=== PATIENT | male | born 1990 | race Caucasian/White ===

== ENCOUNTER 2021-11-10 15:24 | Emergency (ER) | payer MEDICAID, OTHER ==
[~2021-11-10] VITALS: Ht 182.9 cm; Wt 93.0 kg
[2021-11-10 16:02] VITALS: BP 139/85
[2021-11-10] MEDS ORDERED: ACET-3385 PO (16:34)
== END 2021-11-10 16:39 | disposition home or self-care (01) ==
LOC: EMS 15:26
DX: M76.61 Achilles tendinitis, right leg (principal)
CPT/HCPCS: 99282; Z7502

== ENCOUNTER 2022-01-24 14:37 | Emergency (ER) | payer MEDICAID ==
[~2022-01-24] VITALS: Ht 170.2 cm; Wt 100.0 kg
[~2022-01-24 14:37] MED LIST: ACET-3385 PO
[2022-01-24] MEDS ORDERED: ACET-784 PO (14:47)
[2022-01-24 15:31] VITALS: BP 120/82
[2022-01-24 17:47] LABS: COVID AG,FIA SOURCE NASAL SWAB
== END 2022-01-24 18:33 ==
LOC: EMS 14:55
DX: F41.8 Other specified anxiety disorders (principal); Z20.822 Contact with and (suspected) exposure to COVID-19
CPT/HCPCS: 99285; Z7502

== ENCOUNTER 2022-09-20 11:45 | Emergency (ER) | payer MEDICAID ==
[~2022-09-20] VITALS: Ht 185.4 cm; Wt 97.7 kg
[2022-09-20 11:47] VITALS: TEMP 98
[2022-09-20] MEDS ORDERED: AMOX1TAB16 PO (11:49)
[2022-09-20 12:51] LABS: BASOPHILS % (AUTO) 0.4 % (0.0-2.0); EOSINOPHILS % (AUTO) 3.1 % (1.0-6.0); HEMATOCRIT 44.3 % (41-53); HEMOGLOBIN 15.4 g/dL (13.5-17.5); LYMPHOCYTES # (AUTO) 1.4 K/uL (1.0-4.8); LYMPHOCYTES % (AUTO) 25.7 % (22.0-44.0); MEAN CORPUSCULAR HEMOGLOBIN 30.5 pg (26.0-34.0); MEAN CORPUSCULAR HGB CONC 34.7 G/dL (31.0-37.0); MEAN CORPUSCULAR VOLUME 88 fL (80-100); MONOCYTES # (AUTO) 0.4 K/uL (0.1-1.0); MONOCYTES % (AUTO) 7.3 % (2.0-9.0); NEUTROPHILS # (AUTO) 3.5 K/uL (1.8-7.7); NEUTROPHILS % (AUTO) 63.5 % (40.0-70.0); PLATELET COUNT (AUTO) 274 K/uL (150-450); RED BLOOD CELL COUNT(AUTO) 5.04 MIL/uL (4.50-5.90); RED CELL DISTRIBUTION WIDTH 13.4 % (11.5-14.5)
[2022-09-20 13:00] LABS: ANION GAP 8 mmol/L (8-16); CALCIUM, TOTAL 8.8 mg/dL (8.8-10.5); CARBON DIOXIDE 30 mmol/L (22-29); CHLORIDE 101 mmol/L (98-107); CREATININE 0.76 mg/dL (0.60-1.30); GLOMERULAR FILTR. RATE CALC > 60 mL/min (>60); GLUCOSE,RANDOM 94 mg/dL (70-110); POTASSIUM 4.5 mmol/L (3.5-5.1); SODIUM SERUM 139 mmol/L (136-145)
[2022-09-20 13:05] LABS: ALANINE AMINOTRANSFERASE 66 U/L (12-78); ALBUMIN 4.1 g/dL (3.4-5.0); ALKALINE PHOSPHATASE 82 U/L (46-116); ASPARTATE AMINOTRANSFERASE 22 U/L (15-37); BILIRUBIN,TOTAL 0.2 mg/dL (0.1-1.0); TOTAL PROTEIN, SERUM 7.3 g/dL (6.4-8.2)
[2022-09-20 13:19] LABS: COVID AG,FIA SOURCE NASAL SWAB
[2022-09-20 13:40] LABS: AMPHET/METH SCREEN,URINE NEGATIVE (NEGATIVE); BARBITURATE SCREEN, URINE NEGATIVE (NEGATIVE); BENZODIAZEPINES SCREEN,URINE NEGATIVE (NEGATIVE); CANNABINOID SCREEN,URINE NEGATIVE (NEGATIVE); COCAINE SCREEN,URINE NEGATIVE (NEGATIVE); METHADONE SCREEN, URINE NEGATIVE (NEGATIVE); OPIATE SCREEN,URINE NEGATIVE (NEGATIVE); PHENCYCLIDINE SCREEN,URINE NEGATIVE (NEGATIVE)
[2022-09-20 14:07] LABS: LITHIUM < 0.20 mmol/L (0.60-1.20)
[2022-09-20 14:59] VITALS: BP 132/84; PULSE 65; RESP 16
== END 2022-09-20 15:00 | disposition home or self-care (01) ==
LOC: EMS 11:45
DX: Z04.6 Encounter for general psychiatric examination, requested by authority (principal); Z91.013 Allergy to seafood; Z20.822 Contact with and (suspected) exposure to COVID-19
CPT/HCPCS: 99283; 87426; 80053; 80178; 85025; 36415; 80307; G0480

== ENCOUNTER 2022-10-26 14:56 | Emergency (ER) | payer MEDICAID ==
[~2022-10-26] VITALS: Ht 180.3 cm; Wt 101.0 kg
[~2022-10-26 14:56] MED LIST changes: -ACET-3385 PO; +AMOX1TAB16 PO
[2022-10-26 14:58] VITALS: TEMP 98.3
[2022-10-26] MEDS ORDERED: antidepressant PO (15:00)
[2022-10-26] MEDS ORDERED: HYDROCODONE/ACETAMINOPHEN 5-325 MG TABLET PO ONE (20:00)
[2022-10-26] MEDS ORDERED: TRAM-559 PO ×2 (20:08→20:49)
[2022-10-26 20:23] VITALS: BP 133/76; PULSE 79; RESP 16
== END 2022-10-26 20:43 | disposition home or self-care (01) ==
LOC: EMS 14:59
DX: S86.111A Strain of other muscle(s) and tendon(s) of posterior muscle group at lower leg level, right leg, initial encounter (principal); F32.A Depression, unspecified; Z91.013 Allergy to seafood; X50.1XXA Overexertion from prolonged static or awkward postures, initial encounter; Y93.66 Activity, soccer; Y92.89 Other specified places as the place of occurrence of the external cause; Y99.8 Other external cause status
CPT/HCPCS: 29505; 99283